=== PATIENT | female | born 1995 | race Caucasian/White ===

== ENCOUNTER 2017-07-12 17:23 | Emergency (ER) | payer BC, OTHER ==
[~2017-07-12] VITALS: Ht 162.6 cm; Wt 87.0 kg
[~2017-07-12 17:23] MED LIST: BACTDS PO; CLIN-73 PO; IBUP-1542 PO
[2017-07-12 17:47] VITALS: Ht 162.6 cm; Wt 87.0 kg
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
[2017-07-12] MEDS ORDERED: ACET500C5 PO (22:17)
[2017-07-12] MEDS ORDERED: CYCL-319 PO (22:18)
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
== END 2017-07-12 22:26 | disposition home or self-care (01) ==
LOC: FTE 17:23
DX: M25.512 Pain in left shoulder (principal); M54.6 Pain in thoracic spine; M25.552 Pain in left hip; F17.210 Nicotine dependence, cigarettes, uncomplicated
CPT/HCPCS: 71010; 73030; 73520; 81003; Z7502